=== PATIENT | male | born 1985 | race African-American/Black ===

== ENCOUNTER 2020-09-15 21:46 | Emergency (ER) | payer OTHER ==
[~2020-09-15] VITALS: Ht 180.3 cm; Wt 80.7 kg
[2020-09-15 22:04] VITALS: BP 151/83
[2020-09-15] MEDS ORDERED: BACITRACIN OINT 500 UNITS/GM PKT TP ONE (22:14)
[2020-09-15] MEDS: BACITRACIN OINT 500 UNITS/GM PKT TP ONE (22:21)
[2020-09-15 22:42] VITALS: BP 151/83
== END 2020-09-15 22:42 | disposition home or self-care (01) ==
LOC: MED 21:46
DX: S41.102D Unspecified open wound of left upper arm, subsequent encounter (principal); Z98.890 Other specified postprocedural states; X58.XXXD Exposure to other specified factors, subsequent encounter
CPT/HCPCS: 99283

== ENCOUNTER 2020-09-19 05:00 | Emergency (ER) | payer OTHER ==
[~2020-09-19] VITALS: Ht 180.3 cm; Wt 80.7 kg
[2020-09-19 05:01] VITALS: BP 147/90
[2020-09-19 05:25] VITALS: BP 147/90
== END 2020-09-19 05:25 | disposition home or self-care (01) ==
LOC: MED 05:00
DX: S21.119D Laceration without foreign body of unspecified front wall of thorax without penetration into thoracic cavity, subsequent encounter (principal); Z48.00 Encounter for change or removal of nonsurgical wound dressing; W26.8XXD Contact with other sharp object(s), not elsewhere classified, subsequent encounter
CPT/HCPCS: 99282

== ENCOUNTER 2020-09-23 04:00 | Emergency (ER) | payer OTHER ==
[~2020-09-23] VITALS: Ht 180.3 cm; Wt 80.7 kg
[2020-09-23 04:07] VITALS: BP 127/59
--- NOTE | 2020-09-23 04:07 | NUR ---
TO BED AMBULATORY
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
[2020-09-23 05:09] VITALS: BP 127/59
--- NOTE | 2020-09-23 05:09 | NUR ---
Patient discharged with v/s stable. Written and verbal after care instructions given and explained. Patient alert, oriented and verbalized understanding of instructions. Ambulatory with steady gait. All questions addressed prior to discharge. ID band removed. Patient advised to follow up with PMD. Rx of MOTRIN AND NORCO given. Patient educated on indication of medication including possible reaction and side effects. Opportunity to ask questions provided and answered.
== END 2020-09-23 05:04 | disposition home or self-care (01) ==
LOC: MED 04:00
DX: S21.112D Laceration without foreign body of left front wall of thorax without penetration into thoracic cavity, subsequent encounter (principal); X58.XXXD Exposure to other specified factors, subsequent encounter; Z48.00 Encounter for change or removal of nonsurgical wound dressing
CPT/HCPCS: 99283